=== PATIENT | male | born 1955 | race Caucasian/White ===

== ENCOUNTER 2016-10-30 16:02 | Emergency (ER) | payer OTHER ==
[~2016-10-30] VITALS: Ht 182.9 cm; Wt 88.0 kg
--- NOTE | 2016-10-30 16:05 | ED CARDIAC/CP/PALPITATIONS ---
History of Present Illness General Chief Complaint: Chest Pain Stated Complaint: CP Source: patient, family Exam Limitations: no limitations Vital Signs & Intake/Output Vital Signs & Intake/Output Vital Signs Date Time Temp Pulse Resp B/P B/P Pulse O2 O2 Flow FiO2 Mean Ox Delivery Rate 10/30 1950 97.2 68 20 124/72 97 Room Air 10/30 1604 97.8 74 18 157/76 96 Room Air Allergies Coded Allergies: No Known Allergies (10/30/16) Reconcile Medications No Known Home Medications Triage Nurses Notes Reviewed? yes Onset: Gradual Duration: week(s): (1) Timing: recent history Location: central Radiation: no radiation Activities at Onset: EXERTION Aspirin Today: no aspirin today HPI: 61 year old male presents to the ER with 1 week of central chest pain when doing heavy lifting heavy objects at work. He states pain lasts up to 10 minutes. Yesterday he had an episode of pain and made an appointment with his primary care doctor. He was supposed to see the PCP tomorrow but today at work had another episode. Currently he arrives chest pain-free. He went to the [facility] for his PCP and found a new right bundle-branch block on EKG and became concerned. Denies any shortness of breath. He is an active daily smoker. Denies any recent trauma. Denies any pain with climbing stairs. (CORNELIUS HUGGINS MD) Past History Medical History Any Pertinent Medical History? none Surgical History Surgical History: non-contributory Psychosocial History Tobacco Use: Current Daily Use ETOH Use: denies use Illicit Drug Use: denies illicit drug use Family History Comment: breast ca, cva Hx Contributory? No (CORNELIUS HUGGINS MD) Review of Systems Review of Systems Constitutional: Denies: chills, fever. EENTM: Reports: no symptoms. Respiratory: Denies: cough, short of breath, sputum production. Cardiovascular: Reports: chest pain. Denies: palpitations, peripheral edema. GI: Reports: no symptoms. Genitourinary: Reports: no symptoms. Musculoskeletal: Reports: no symptoms. Skin: Reports: no symptoms. Neurological/Psychological: Reports: no symptoms. Hematologic/Endocrine: Denies: bruising, bleeding, polyuria, polydipsia. Immunologic/Allergic: Denies: splenectomy. All Other Systems: Reviewed and Negative (CORNELIUS HUGGINS MD) Physical Exam Physical Exam General Appearance: well developed/nourished, alert, awake, mild distress Head: atraumatic, normal appearance Eyes: Bilateral: normal appearance, PERRL, EOMI. Ears, Nose, Throat: normal pharynx, normal ENT inspection, hearing grossly normal Neck: normal inspection, supple, full range of motion Respiratory: normal breath sounds, chest non-tender, no respiratory distress Cardiovascular: regular rate/rhythm Peripheral Pulses: 2+ radial (R), 2+ radial (L) Gastrointestinal: normal bowel sounds, soft, non-tender Neurologic/Psych: no motor/sensory deficits, awake, alert Skin: intact, normal color, warm/dry Core Measures ACS in differential dx? Yes ASA ordered for poss ACS? Yes-ordered Severe Sepsis Present: No Septic Shock Present: No (CORNELIUS HUGGINS MD) Progress Differential Diagnosis: AMI, aortic dissection, costochondritis, myocarditis, pericarditis, pneumonia, pneumothorax, pulmonary embolism, PUD/GERD, unstable angina Plan of Care: Orders Procedure Date/time Status Heart Healthy Diet 10/31 B Active TROPONIN LEVEL 10/31 1999 Complete EKG 10/31 1999 Active Add-on Test (ER Only) 10/30 1659 Active LYME TITRE 10/30 1629 Active D-DIMER 10/30 1629 Complete Add-on Test (ER Only) 10/30 1628 Active TROPONIN LEVEL 10/30 1607 Complete PARTIAL THROMBOPLASTIN TIME 10/30 1607 Complete PROTHROMBIN TIME 10/30 1607 Complete MAGNESIUM 10/30 1607 Complete COMPREHENSIVE METABOLIC PANEL 10/30 1607 Complete CBC WITHOUT DIFFERENTIAL 10/30 1607 Complete EKG 10/30 1607 Active Laboratory Tests 10/30/16 1955: Troponin I < 0.01 10/30/16 1629: Anion Gap 11, Estimated GFR > 60, BUN/Creatinine Ratio 23.8, Glucose 79, Calcium 9.4, Magnesium 2.4 H, Total Bilirubin 0.6, AST 21, ALT 50, Alkaline Phosphatase 70, Troponin I < 0.01, Total Protein 6.4, Albumin 4.3, Globulin 2.1, Albumin/ Globulin Ratio 2.0, PT 10.8, INR 1.03, APTT 47 H, D-Dimer High Sensitivty < 200 , CBC w Diff NO MAN DIFF REQ, RBC 5.07, MCV 91.1, MCH 30.5, RDW 13.5, MPV 7.7, Gran % 67.2, Lymphocytes % 23.6, Monocytes % 7.0, Eosinophils % 1.5, Basophils % 0.7, Absolute Granulocytes 7.0 H, Absolute Lymphocytes 2.5, Absolute Monocytes 0.7 H, Absolute Eosinophils 0.2, Absolute Basophils 0.1, PUBS MCHC 33.4, Lyme Disease Antibody Pending Initial ED EKG: NSR, RBBB Hand-Off Endorsed To: RADHA ROSA MD Endorsed Time: 1913 Pending: EKG, labs (TROPONIN) (CORNELIUS HUGGINS MD) Repeat EKG: unchanged (RADHA ROSA MD) Departure Departure Condition: Stable Clinical Impression Primary Impression: Chest pain on exertion Departure Forms: Customer Survey General Discharge Information Prescriptions: Current Visit Scripts No Known Home Medications (CORNELIUS HUGGINS MD) Departure Disposition: HOME OR SELF CARE Referrals: JOSSIE MILLER,KOBI Haines (PCP/Family) ISRAEL MILLER PhD,ANDREY Alaniz Additional Instructions: FOLLOW UP WITH DR. WOOD RETURN FOR ANY CONCERNS (RADHA ROSA MD) Critical Care Note Critical Care Note Critical Care Time: non-applicable (CORNELIUS HUGGINS MD)
[2016-10-30 16:40] LABS: ABSOLUTE BASOPHIL COUNT 0.1 /CUMM (0.0-0.2); ABSOLUTE EOSINOPHIL COUNT 0.2 /CUMM (0.0-0.7); ABSOLUTE LYMPH COUNT 2.5 /CUMM (1.2-3.4); ABSOLUTE MONOCYTE COUNT 0.7 /CUMM (0.10-0.60); BASOPHIL % 0.7 % (0.0-2.0); EOSINOPHIL % 1.5 % (0-5); GRANULOCYTE % 67.2 % (42.2-75.2); HEMATOCRIT 46.2 % (42-52); MEAN CORPUSCULAR HGB 30.5 PG (27.0-31.0); MEAN CORPUSCULAR HGB CONC 33.4 G/DL (33.0-37.0); MEAN CORPUSCULAR VOLUME 91.1 FL (80.0-94.0); MEAN PLATELET VOLUME 7.7 FL (7.4-10.4); PLATELET COUNT 275 /CUMM (130-400); RBC DISTRIBUTION WIDTH 13.5 % (11.5-14.5); RED BLOOD CELL CT 5.07 /CUMM (4.70-6.10); WHITE BLOOD CELL COUNT 10.5 /CUMM (4.8-10.8)
[2016-10-30 16:53] LABS: PT 10.8 SEC (9.4-12.5); PTT 47 SEC (25-37)
[2016-10-30 21:35] VITALS: BP 132/70
== END 2016-10-30 21:47 ==
LOC: ERH 16:02
PROVIDERS: Emergency Medicine
DX: R07.89 Other chest pain (principal)
CPT/HCPCS: 86618; 93005; 93010